=== PATIENT | female | born 1980 | race Caucasian/White ===

== ENCOUNTER → 2018-12-07 | Outpatient (CLI) | payer OTHER, BC ==
[2014-04-25 11:48] VITALS: BP 105/57
[~2018-12-07] MED LIST: FIBER TABLETS1 TAB PO; IBUPROFEN200 M1 PO; MULTIPLE VITAMI1 CAP PO; SULFAMETH/TRIME1 TA1 PO
== END ==
LOC: RAD 17:59
DX: M79.671 Pain in right foot (principal)

== ENCOUNTER → 2022-02-09 | Outpatient (CLI) | payer BC | LOC: RAD 08:49 | DX: N20.0 Calculus of kidney (principal); N83.202 Unspecified ovarian cyst, left side | CPT/HCPCS: Q9967 ==

== ENCOUNTER → 2022-03-17 | Outpatient (CLI) | payer BC | LOC: RAD 09:59 | DX: R10.2 Pelvic and perineal pain (principal) ==

== ENCOUNTER 2023-06-27 07:57 | Outpatient (RCR) | payer BC | END 2023-07-22 | disposition home or self-care (01) | LOC: PT | DX: M77.11 Lateral epicondylitis, right elbow (principal); M72.2 Plantar fascial fibromatosis; M19.072 Primary osteoarthritis, left ankle and foot; M19.071 Primary osteoarthritis, right ankle and foot ==

== ENCOUNTER 2023-07-24 08:00 | Outpatient (RCR) | payer BC | END 2023-08-22 | disposition home or self-care (01) | LOC: PT | DX: M77.11 Lateral epicondylitis, right elbow (principal); M72.2 Plantar fascial fibromatosis; M19.072 Primary osteoarthritis, left ankle and foot; M19.071 Primary osteoarthritis, right ankle and foot ==

== ENCOUNTER 2023-08-23 08:00 | Outpatient (RCR) | payer BC | END 2023-08-27 17:00 | disposition home or self-care (01) | LOC: PT 08:00 | DX: M19.072 Primary osteoarthritis, left ankle and foot (principal); M19.071 Primary osteoarthritis, right ankle and foot; M72.2 Plantar fascial fibromatosis; M77.11 Lateral epicondylitis, right elbow ==

== ENCOUNTER 2024-04-20 12:00 | Emergency (ER) | payer BC ==
[~2024-04-20] VITALS: Ht 165.1 cm; Wt 105.5 kg
[2024-04-20] MEDS ORDERED: Triamcinolone 40 MG/ML 1 ML VIAL IM ONE (13:00)
[2024-04-20] MEDS ORDERED: PREDNISONE20 M1 PO (13:03)
[2024-04-20] MEDS ORDERED: Lidocaine 1% (10 MG/ML) 10 ML Multi-Dose IJ ONE (14:00)
[2024-04-20 14:18] VITALS: BP 132/75
== END 2024-04-20 14:13 | disposition home or self-care (01) ==
LOC: ED 12:00
DX: L25.9 Unspecified contact dermatitis, unspecified cause (principal); L03.113 Cellulitis of right upper limb; L03.114 Cellulitis of left upper limb
CPT/HCPCS: J0696; J3301